=== PATIENT | male | born 1980 | race Caucasian/White ===

== ENCOUNTER 2019-03-03 04:12 | Emergency (ER) | payer OTHER ==
[2019-03-03 04:22] VITALS: BP 122/72; PULSE 64; TEMP 98.1; BMI 27.1
--- NOTE | 2019-03-03 05:57 | PDOC ---
History of Present Illness - General Chief Complaint: Injury Stated Complaint: THUMB INJURY/[employer] Time Seen by Provider: 03/03/19 04:59 History Source: Patient - History of Present Illness Initial Comments: 03/03/19 05:56 38 year old [employer] c/o right thumb pain and right knee pain reports he was holding down an EDP reports jamming knee to the floor now with slight pain. able to wait bear. some pain on palpation 03/03/19 05:59 Past History - Past Medical History Allergies/Adverse Reactions: Allergies Allergy/AdvReac Type Severity Reaction Status Date / Time shellfish derived Allergy Severe Verified 03/03/19 04:22 Home Medications: Ambulatory Orders Methylphenidate HCl [Concerta] 36 mg PO DAILY 06/28/13 COPD: No - Surgical History Appendectomy: Yes GI Surgery: Yes - Suicide/Smoking/Psychosocial Hx Smoking History: Never smoked *Physical Exam - Vital Signs Last Vital Signs Temp Pulse Resp BP Pulse Ox 98.1 F 64 18 122/72 96 03/03/19 04:21 03/03/19 04:21 03/03/19 04:21 03/03/19 04:21 03/03/19 04:21 - Physical Exam General Appearance: Yes: Appropriately Dressed Extremity: positive: Other (full rom. able to make a fist. no deformity) Integumentary: positive: Normal Color, Dry, Warm Neurologic: positive: Fully Oriented, Alert ED Treatment Course - RADIOLOGY Radiology Studies Ordered: Category Date Time Status FINGER(S) RIGHT [RAD] Stat Radiology 03/03/19 05:10 Taken KNEE 3 POS-RIGHT [RAD] Stat Radiology 03/03/19 05:09 Ordered Medical Decision Making - Medical Decision Making 03/03/19 06:56 right thumb injury; right knee injury p: xray finger splint ortho follow up discussed. *DC/Admit/Observation/Transfer Diagnosis at time of Disposition: Injury of thumb, right Qualifiers: Encounter type: initial encounter Qualified Code(s): S69.91XA - Unspecified injury of right wrist, hand and finger(s), initial encounter Right knee pain Qualifiers: Chronicity: acute Qualified Code(s): M25.561 - Pain in right knee - Discharge Dispostion Disposition: HOME - Referrals Referrals: Maximus Hobbs [Primary Care Provider] - Billy Whittington MD [Staff Physician] - - Patient Instructions Printed Discharge Instructions: Finger Sprain Additional Instructions: apply ice to the area. take ibuprofen every 6 hours as needed for pain follow up with an orthopedic / hand doctor if symptoms persist - Post Discharge Activity Forms/Work/School Notes: Back to Work
== END 2019-03-03 06:08 | disposition home or self-care (01) ==
LOC: JER 04:12
DX: S69.91XA Unspecified injury of right wrist, hand and finger(s), initial encounter (principal); M25.561 Pain in right knee; Y35.891A Legal intervention involving other specified means, law enforcement official injured, initial encounter; Y93.89 Activity, other specified; Y92.9 Unspecified place or not applicable; Y99.0 Civilian activity done for income or pay
CPT/HCPCS: 73140-TC-RT-FY; 73562-TC-RT-FY; 99281-25